=== PATIENT | female | born 1975 | race Asian ===

== ENCOUNTER 2019-11-18 00:20 | Emergency (ER) | payer OTHER ==
[~2019-11-18] VITALS: Ht 157.5 cm; Wt 56.7 kg
[2019-11-18 00:30] VITALS: Ht 157.5 cm; Wt 56.7 kg
[2019-11-18 02:00] LABS: BASOPHIL % 1.2 % (0-2); PLATELET COUNT 362 x10^3mcL (130-400); RED CELL DISTRIBUTION WIDTH 13.1 % (11.5-14.5)
[2019-11-18 02:44] LABS: CALCIUM 8.8 mg/dL (8.5-10.1); CARBON DIOXIDE 25.6 mmol/L (21-32); CHLORIDE SERUM 96 mmol/L (98-107); CREATININE SERUM 0.8 mg/dL (0.6-1.0); GFR1 > 60 mL/min; GLUCOSE SERUM 128 mg/dL (74-106); POTASSIUM SERUM 3.1 mmol/L (3.5-5.1); SODIUM SERUM 134 mmol/L (136-145)
[2019-11-18 02:49] LABS: ALBUMIN 3.7 g/dL (3.4-5.0); ALKALINE PHOSPHATASE 66 U/L (46-116); ALT/SGPT 29 U/L (14-59); AST/SGOT 33 U/L (15-37); BILIRUBIN TOTAL 0.4 mg/dL (0.20-1.00); TOTAL PROTEIN, SERUM 7.2 g/dL (6.4-8.2)
[2019-11-18 04:03] LABS: AMPHETAMINE QUAL UR NONE DETECTED (See below)
[2019-11-18] MEDS ORDERED: KEPPRA500 MG (07:40)
[2019-11-18] MEDS ORDERED: NATURE'S BLEND F1 MG (07:41)
[2019-11-18] MEDS ORDERED: HORIZANT300 MG (07:41)
[2019-11-18] MEDS ORDERED: THIAMINE HCL100 MG (07:41)
[2019-11-18 10:57] VITALS: BP 107/60
== END 2019-11-18 10:55 | disposition home or self-care (01) ==
LOC: ED 00:20
PROVIDERS: Emergency Medicine
DX: R45.1 Restlessness and agitation (principal); I10 Essential (primary) hypertension
CPT/HCPCS: G0480; J1630; J2060